=== PATIENT | male | born 1965 | race Caucasian/White ===

== ENCOUNTER 2019-10-31 19:07 | Emergency (ER) | payer BC ==
[2019-10-31] MEDS ORDERED: OXYCODONE-ACETAMINOPHEN 5-325 MG TABLET PO ONE (19:20)
[2019-10-31] MEDS ORDERED: DIPH/PERTUSS(ACELL)/TETANUS VAC/PF 0.5 ML SYR (>=10YO) IM ONE (19:24)
--- NOTE | 2019-10-31 19:24 | ER Document Report ---
ED Medical Screen (RME) - General Chief Complaint: Hand Injury Stated Complaint: FINGER INJURY Time Seen by Provider: 10/31/19 19:11 Mode of Arrival: Wheelchair Information source: Patient Notes: 54-year-old male presented to ED for injury to his second third and fourth finger on the right hand. He states he was working on his [employer] when he got off and forgot to set the blades off and struck his finger under the mower causing a laceration to the third finger and injuries to the second and fourth. The second finger is laid open pretty deep. Patient is kind of pale acting in shock repeatedly asking the same questions. 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 He does have a history of high blood pressure and is on hydrochlorothiazide. We have treated him with Percocet and ordered a tetanus immunization. I have greeted and performed a rapid initial assessment of this patient. A comprehensive ED assessment and evaluation of the patient, analysis of test results and completion of medical decision making process will be conducted by an additional ED providers. TRAVEL OUTSIDE OF THE [place] IN LAST 30 DAYS: No - Related Data Allergies/Adverse Reactions: No Known Allergies Allergy (Unverified 12/13/15 10:30) Home Medications: xarelto, hydrochlorothiazide Past Medical History - Social History Chew tobacco use (# tins/day): No Frequency of alcohol use: None Drug Abuse: None - Past Medical History Cardiac Medical History: Reports: Hx Hypercholesterolemia, Hx Hypertension - Immunizations Hx Diphtheria, Pertussis, Tetanus Vaccination: Yes Physical Exam - Vital signs Vitals: Temp Pulse Resp BP Pulse Ox 97.5 F 88 20 157/98 H 97 10/31/19 19:12 10/31/19 19:12 10/31/19 19:12 10/31/19 19:12 10/31/19 19:12 Course - Vital Signs Vital signs: Temp Pulse Resp BP Pulse Ox 97.5 F 88 20 157/98 H 97 10/31/19 19:14 10/31/19 19:12 10/31/19 19:12 10/31/19 19:12 10/31/19 19:12
--- NOTE | 2019-10-31 19:54 | RADIOLOGY REPORT (SQ) ---
EXAM DESCRIPTION: HAND RIGHT 3 VIEWS IMAGES COMPLETED DATE/TIME: 10/31/2019 7:44 pm REASON FOR STUDY: injury pain COMPARISON: None. EXAM PARAMETERS: NUMBER OF VIEWS: Three views. TECHNIQUE: AP, lateral and oblique radiographic images acquired of the right hand. LIMITATIONS: None. FINDINGS: MINERALIZATION: Normal. BONES: Fracture of the terminal tuft of the 3rd digit. JOINTS: No effusions. SOFT TISSUES: Soft tissue injury in the tip of the 3rd digit. OTHER: No other significant finding. IMPRESSION: Soft tissue injury with fracture of the terminal tuft of the 3rd digit. TECHNICAL DOCUMENTATION: JOB ID: [id number] [employer]- All Rights Reserved Reading location - IP/workstation name: [email or web address]
[2019-10-31] MEDS ORDERED: ONDANSETRON HCL INJ/PF 4 MG/2 ML SDV IV ONE (20:20)
[2019-10-31] MEDS ORDERED: CEFAZOLIN 1 GM/D5W RTU 1 GM/50 ML RTUPB IV ONE (20:20)
[2019-10-31] MEDS ORDERED: LIDOCAINE 1% INJ-PF (10 MG/ML) 30 ML SDV INJ ONE (20:21)
[2019-10-31] MEDS ORDERED: BUPIVACAINE HCL 0.5 % INJ/PF 30 ML SDV INJ ONE (20:22)
--- NOTE | 2019-10-31 20:24 | ER Document Report ---
ED Hand/Wrist Injury - General Chief Complaint: Hand Injury Stated Complaint: FINGER INJURY Time Seen by Provider: 10/31/19 19:11 Primary Care Provider: LISA PEREZ JR, DO [ACTIVE PROVISIONAL STAFF] - Follow up tomorrow Mode of Arrival: Wheelchair Notes: Patient is a 54-year-old male that comes emergency department for chief complaint of laceration to the right middle finger at the tip of the finger just underneath the fingernail. He states that he was working on his lawnmower, he forgot to set blades off and he stuck his hand under the mower causing a laceration. He also has abrasions to the second and fourth fingers with some bruising. 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 He is not up-to-date on his tetanus. He denies any other injuries or any other complaints. He does not have diabetes. TRAVEL OUTSIDE OF THE [place] IN LAST 30 DAYS: No - Related Data Allergies/Adverse Reactions: No Known Allergies Allergy (Unverified 12/13/15 10:30) Home Medications: xarelto, hydrochlorothiazide Past Medical History - General Information source: Patient - Social History Smoking Status: Never Smoker Chew tobacco use (# tins/day): No Frequency of alcohol use: None Drug Abuse: None Lives with: Family Family History: Reviewed & Not Pertinent - Past Medical History Cardiac Medical History: Reports: Hx DVT, Hx Hypercholesterolemia, Hx Hypertension - Immunizations Immunizations up to date: No Hx Diphtheria, Pertussis, Tetanus Vaccination: Yes Review of Systems - Review of Systems Constitutional: No symptoms reported EENT: No symptoms reported Cardiovascular: No symptoms reported Respiratory: No symptoms reported Gastrointestinal: No symptoms reported Genitourinary: No symptoms reported Male Genitourinary: No symptoms reported Musculoskeletal: See HPI Skin: See HPI Hematologic/Lymphatic: No symptoms reported Neurological/Psychological: No symptoms reported Physical Exam - Vital signs Vitals: Temp Pulse Resp BP Pulse Ox 97.5 F 88 20 157/98 H 97 10/31/19 19:12 10/31/19 19:12 10/31/19 19:12 10/31/19 19:12 10/31/19 19:12 - Notes Notes: GENERAL: Alert, interacts well. No acute distress. HEAD: Normocephalic, atraumatic. EYES: Pupils equal, round, and reactive to light. Extraocular movements intact. ENT: Oral mucosa moist, tongue midline. Oropharynx unremarkable. Airway patent. Nares patent, sinuses non-tender, ear canals unremarkable, TM's intact. NECK: Full range of motion. Supple. Trachea midline. No lymphadenopathy. LUNGS: Clear to auscultation bilaterally, no wheezes, rales, or rhonchi. No respiratory distress. Non-tender chest wall. HEART: Regular rate and rhythm. No murmur ABDOMEN: Soft, non-tender. Non-distended. Bowel sounds present in all 4 quadrants. GENITOURINARY: Deferred EXTREMITIES: there is a large laceration across the length of the finger horizontally over the right middle finger just beneath the bed of the nail and through the tuft, part of the tuft is into the area by the wound. There is a good coloration however, the end is not significantly dusky, there is no injury of the nail, no other concerning injuries are noted. Small abrasions to the 2nd and 4th fingers. BACK: no cervical, thoracic, lumbar midline tenderness. No saddle anesthesia, normal distal neurovascular exam. NEUROLOGICAL: Alert and oriented x3. Normal speech. Cranial nerves II through XII grossly intact. Strength 5/5 in all extremities. PSYCH: Normal affect, normal mood. SKIN: Warm, dry, normal turgor. No rashes or lesions noted. Course - Re-evaluation Re-evalutation: There is a laceration over the right middle finger just beneath the bed of the nail and through the tuft, part of the tuft is into the area by the wound. There is a good coloration however, there is not significantly dusky, there is no injury of the nail, no other concerning injuries are noted. 10/31/19 20:30 I called and spoke with orthopedics on-call, Dr. Perez, he recommends that we irrigate this, reattach as much as possible, splint, start on antibiotics, and patient can follow-up in the office tomorrow or Monday. Digital block was performed with good results, patient was given tetanus and Ancef. I had to put a suture through the nail to pull the end of the finger back up and then the macerated side of the finger was repaired with several sutures although there was some avulsed tissue. Before all of this the area was thoroughly irrigated. Patient placed in a splint, he will be sent to orthopedics, he was prescribed antibiotics and pain medication. Patient and family state appreciation and agreement. - Vital Signs Vital signs: Temp Pulse Resp BP Pulse Ox 97.5 F 96 18 110/70 98 10/31/19 19:14 10/31/19 23:15 10/31/19 23:15 10/31/19 23:15 10/31/19 23:15 Procedures - Laceration/Wound Repair right middle finger Wound length (cm): 2 Wound's Depth, Shape: Irregular, Flap Laceration pre-procedure: Sterile PPE donned, Sterile drapes applied, Shur-Clens applied Anesthetic type: Other - Digital block with a total of 4 cc of 0.5% bupivacaine and 1% lidocaine Wound explored: Clean, No foreign body removed Irrigated w/ Saline (mLs): 100 Wound Repaired With: Sutures Suture Size/Type: 4:0, Ethilon Number of Sutures: 11 Layer Closure?: No Post-procedure wound care: Sterile dressing applied, Splint applied Post-procedure NV exam normal: Yes Complications: No Notes: Macerated flap wound which required multiple sutures. One suture had to be placed through the nail and through the flap of the finger to approximate this back up after this was thoroughly irrigated. 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 This was cleaned thoroughly and approximated, however you will need orthopedic follow-up. Please call the orthopedic office in the morning to set up your close follow-up. I spoke with Dr. Andrey mireles. Wear the splint, take the pain medication and nausea medication if needed, take the antibiotics as prescribed. While taking this antibiotic I recommend that you also take an [id number] probiotic to avoid diarrhea. Return for any concerning symptoms or something is not right (severe worsening swelling or pain, developing fever, or any other concerning symptoms). Prescriptions: Amoxicillin/Potassium Clav [Augmentin 875-125 Tablet] 1 tab PO BID 7 Days #14 tablet Oxycodone HCl/Acetaminophen [Percocet 5-325 mg Tablet] 1 tab PO TID PRN #10 tab PRN Reason: Referrals: LISA PEREZ JR, DO [ACTIVE PROVISIONAL STAFF] - Follow up tomorrow
[2019-10-31] MEDS ORDERED: ONDANSETRON ODT 4 MG TAB (6 TAB/ER DISP) PO PRN (22:19)
[2019-10-31] MEDS ORDERED: HYDROCODONE/ACETAMINOPHEN 5-325 MG (6 TAB/ER DISP) PO PRN (22:19)
[2019-10-31 23:20] VITALS: BP 110/70
== END 2019-10-31 23:18 | disposition home or self-care (01) ==
LOC: ER 19:07
DX: S62.632B Displaced fracture of distal phalanx of right middle finger, initial encounter for open fracture (principal); W28.XXXA Contact with powered lawn mower, initial encounter; Y93.89 Activity, other specified; I10 Essential (primary) hypertension; D68.51 Activated protein C resistance; Z86.718 Personal history of other venous thrombosis and embolism; Z79.01 Long term (current) use of anticoagulants; Z79.899 Other long term (current) drug therapy; Z23 Encounter for immunization
CPT/HCPCS: 12001; 99284; 90471; 96375; 96365; 96366; 73130; 90715; J3490 ×2; J0690; J2405